=== PATIENT | male | born 1975 | race Two or more races ===

== ENCOUNTER 2021-07-08 06:31 | Emergency (ER) | payer MEDICAID, SELFPAY ==
--- NOTE | ~2021-07-08 | XR_ITS ---
EXAMINATION: XR CHEST CLINICAL INFORMATION: Chest pain. COMPARISON: None TECHNIQUE: Frontal view of the chest was obtained. FINDINGS: No significant abnormality is noted involving the heart, lungs, mediastinum, bony thorax or soft tissues. XR/XR chest 1V IMPRESSION: Unremarkable chest examination.
--- NOTE | 2021-07-08 06:43 | ED_ITS ---
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 Mode of arrival: ambulatory Limitations: no limitations History of Present Illness MD complaint: chest pain Onset (ago): month(s) Timing of current episode: episodic Prior episodes: Yes Onset: during rest Pain location: left chest Pain radiation: none Severity: mild Quality: sharp Relieving factors: nothing Exacerbating factors: nothing Context: other (states he has been anxious) Treatment prior to arrival: none Related Data Allergies Allergy/AdvReac Type Severity Reaction Status Date / Time pineapple [PINEAPPLE] Allergy Severe RASH Unverified 06/28/20 18:58 hydrochlorothiazide [HCTZ] Allergy Unknown DIFFICULTY Unverified 06/28/20 18:58 SWALLOWING, VOICE CHANGE. lisinopril [LISINOPRIL] Allergy Unknown VOICE Unverified 06/28/20 18:58 CHANGE, DIFFICULTY SWALLOWING Review of Systems Review of Systems: Constitutional : No Weight loss, No Fever, No Chills ENT/Mouth : No sore throat, No Rhinorrhea Eyes: No Eye Pain, No Swelling Cardiovascular : pos Chest Pain, no SOB, no Dyspnea on Exertion, No Orthopnea, No Edema, No Palpitations Respiratory : No Cough, No Sputum Gastrointestinal : no Nausea, No Vomiting, No Diarrhea, No abdominal Pain, No Hematochezia, No Melena Genitourinary : No Dysuria, No Urinary Frequency Musculoskeletal : No joint pain, No Myalgias, No Joint Swelling Skin : No Skin Lesions, No rash Neuro : No Weakness, No Numbness, No Dizziness, No Headache Psych : No Anxiety/Panic, No Depression Heme/Lymph: No Bruising, No Lymphadenopathy Endocrine : No Polyuria, No Polydipsia All other systems reviewed and are negative PMF Past Medical History Medical History Anxiety Glaucoma High cholesterol Hypertension Social History Social History Alcohol intake: never Patient Tobacco Use Status: Never used Tobacco Use of substances other than those prescribed or required for medical reasons: No Advance Directives: No Physical Exam Vital Signs: Vital Signs: Last Vital Signs Temp 98.7 F 07/08/21 06:46 Pulse 85 07/08/21 07:15 Resp 20 07/08/21 07:15 BP 138/95 H 07/08/21 07:15 Pulse Ox 99 07/08/21 07:15 Body Mass Index 37.3 Appearance: Alert. Oriented X3. No acute distress. Eyes: Pupils equal, round and reactive to light. ENT: Pharynx normal. Neck: Normal inspection. Neck supple. CVS: Normal heart rate and rhythm. Pulses normal. Respiratory: No respiratory distress. Breath sounds normal. Abdomen: Soft and nontender. Skin: Skin warm and dry. Normal skin color. Normal skin turgor. Extremities: No lower extremity edema. No calf ttp Neuro: Oriented X 3. No motor deficit. No sensory deficit. Course Course Course Narrative: negative trop, no ischemic EKG - very atypical for ACS MDM - Chest Pain MDM Narrative Medical decision making narrative: 45 yo male with HTN here with months of chest pain - not toxic, no associated symptoms starts with stress - seems unusual for ACS, PERC negative, distal pulses intact and given duration doubt dissection will obtain basic labs, EKG, troponin x 1, refer to PCP for stress test Lab Data Result diagrams: 07/08/21 07:10 07/08/21 07:10 Labs: Lab Results 07/08/21 07/08/21 07/08/21 Range/Units 07:10 07:10 07:10 WBC 7.5 (4.8-10.8) X10*3/uL RBC 5.44 (4.60-5.80) X10*6/uL Hgb 16.3 (14.0-18.0) g/dl Hct 46.4 (42-52) % MCV 85.3 (80-98) fL MCH 30.0 (27.0-33.0) pg MCHC 35.1 (31.0-36.0) g/dl RDW 11.9 (11.0-16.0) % Plt Count 240 (160-400) X10*3/uL MPV 9.0 L (9.4-12.4) fL Immature Gran % (Auto) 0.3 (0.0-0.4) % Neut % (Auto) 37.4 L (45-73) % Lymph % (Auto) 48.3 H (20-40) % Hubbard % (Auto) 10.1 (2-11) % Eos % (Auto) 3.2 (0-4) % Baso % (Auto) 0.7 (0-2) % Lymph # (Auto) 3.6 (1.2-4.9) X10*3/uL Hubbard # (Auto) 0.8 (0.1-1.2) X10*3/uL Eos # (Auto) 0.2 (0.0-0.4) X10*3/uL Baso # (Auto) 0.1 (0.0-0.2) X10*3/uL Abs Immat Gran (auto) 0.02 (0.00-0.03) X10*3/uL Absolute Neuts (auto) 2.8 (2.0-8.3) X10*3/uL Absolute Nucleated RBC 0.000 (0.0-0.012) X10*3/uL Nucleated RBC % (auto) 0.0 (0.0-0.2) /100WBC Sodium 140 (135-145) mmol/L Potassium 3.6 (3.3-5.1) mmol/L Chloride 106 (96-108) mmol/L Carbon Dioxide 26 (22-29) mmol/L Anion Gap 12 (12-20) BUN 10 (9-16) mg/dL Creatinine 1.11 (0.5-1.4) mg/dL Estim Creat Clear Calc 110.4 Estimated GFR > 60 Random Glucose 90 (60-115) mg/dL Calcium 9.2 (8.4-10.2) mg/dL Magnesium 2.1 (1.6-2.6) mg/dL Total Bilirubin 0.6 (0.0-1.0) mg/dL Direct Bilirubin 0.2 (0.0-0.5) mg/dL AST 29 (5-37) U/L ALT 68 H (0-40) U/L Alkaline Phosphatase 101 (39-117) U/L Troponin I High Sens < 3.5 (<3.5-35.0) ng/L Total Protein 7.4 (6.5-8.0) g/dL Albumin 4.6 (3.5-5.0) g/dL Lipase 68 (8-78) U/L COVID-19 ([facility]) (Negative) COVID-19 Clin Com 07/08/21 Range/Units 07:10 WBC (4.8-10.8) X10*3/uL RBC (4.60-5.80) X10*6/uL Hgb (14.0-18.0) g/dl Hct (42-52) % MCV (80-98) fL MCH (27.0-33.0) pg MCHC (31.0-36.0) g/dl RDW (11.0-16.0) % Plt Count (160-400) X10*3/uL MPV (9.4-12.4) fL Immature Gran % (Auto) (0.0-0.4) % Neut % (Auto) (45-73) % Lymph % (Auto) (20-40) % Hubbard % (Auto) (2-11) % Eos % (Auto) (0-4) % Baso % (Auto) (0-2) % Lymph # (Auto) (1.2-4.9) X10*3/uL Hubbard # (Auto) (0.1-1.2) X10*3/uL Eos # (Auto) (0.0-0.4) X10*3/uL Baso # (Auto) (0.0-0.2) X10*3/uL Abs Immat Gran (auto) (0.00-0.03) X10*3/uL Absolute Neuts (auto) (2.0-8.3) X10*3/uL Absolute Nucleated RBC (0.0-0.012) X10*3/uL Nucleated RBC % (auto) (0.0-0.2) /100WBC Sodium (135-145) mmol/L Potassium (3.3-5.1) mmol/L Chloride (96-108) mmol/L Carbon Dioxide (22-29) mmol/L Anion Gap (12-20) BUN (9-16) mg/dL Creatinine (0.5-1.4) mg/dL Estim Creat Clear Calc Estimated GFR Random Glucose (60-115) mg/dL Calcium (8.4-10.2) mg/dL Magnesium (1.6-2.6) mg/dL Total Bilirubin (0.0-1.0) mg/dL Direct Bilirubin (0.0-0.5) mg/dL AST (5-37) U/L ALT (0-40) U/L Alkaline Phosphatase (39-117) U/L Troponin I High Sens (<3.5-35.0) ng/L Total Protein (6.5-8.0) g/dL Albumin (3.5-5.0) g/dL Lipase (8-78) U/L COVID-19 ([facility]) Negative (Negative) COVID-19 Clin Com See Note ECG Data ECG #1: Attestation: I personally reviewed and interpreted this ECG as follows: ECG interpretation date: 07/08/21 ECG interpretation time: 06:44 Prior ECG tracings: not available for review Interpretation: Ventricular rate 83 OR interval normal QRS normal QT/QTC normal, normal sinus rhythm. No ST elevations, no T-wave inversions. No acute ischemia. No previous to compare Discharge Plan Discharge Clinical Impression: Atypical chest pain Patient Disposition: Home, Self-Care Instructions: Chest Pain (ED) Additional Instructions: return to ED for any worsening symptoms or concerns Referrals: Physician,Unknown [Primary Care Provider] - 2 days (outpatient stress test) Stand Alone Forms: Work/School Release Print Language: Citizen Of [place]
[2021-07-08 06:46] VITALS: BP 142/99; PULSE 95; RESP 20; TEMP 37.1; O2SAT 99; BMI 37.3
--- NOTE | 2021-07-08 06:54 | PC.NURSE ---
EKG done by Joaquin MORALES in triage @ 0640, handed to provider for review
--- NOTE | 2021-07-08 06:57 | ECG_ITS ---
Test Reason : CHEST PAIN Blood Pressure : / mmHG Vent. Rate : 083 BPM Atrial Rate : 083 BPM P-R Int : 152 ms QRS Dur : 100 ms QT Int : 360 ms P-R-T Axes : 038 -18 034 degrees QTc Int : 423 ms Normal sinus rhythm Normal ECG No previous ECGs available Referred By: Jamee Valencia Electronically Signed By:CHARISSE VERMA
[2021-07-08 07:15] VITALS: BP 138/95; PULSE 85; RESP 20; O2SAT 99
[2021-07-08 07:15] LABS: MANUAL DIFF FLAG NO
[2021-07-08 07:16] LABS: Basophils Absolute Auto 0.1 X10*3/uL (0.0-0.2); Basophils Percent Auto 0.7 % (0-2); Eosinophils Absolute Auto 0.2 X10*3/uL (0.0-0.4); Eosinophils Percent Auto 3.2 % (0-4); Hematocrit 46.4 % (42-52); Hemoglobin 16.3 g/dl (14.0-18.0); Imm Gran Abs Auto 0.02 X10*3/uL (0.00-0.03); Imm Gran Pct Auto 0.3 % (0.0-0.4); Lymphocytes Absolute Auto 3.6 X10*3/uL (1.2-4.9); Lymphocytes Percent Auto 48.3 % (20-40); Mean Corpuscular HGB Conc 35.1 g/dl (31.0-36.0); Mean Corpuscular Volume 85.3 fL (80-98); Monocytes Absolute Auto 0.8 X10*3/uL (0.1-1.2); Monocytes Percent Auto 10.1 % (2-11); Neutrophils Absolute Auto 2.8 X10*3/uL (2.0-8.3); Neutrophils Percent Auto 37.4 % (45-73); Platelet Count 240 X10*3/uL (160-400); Red Blood Count 5.44 X10*6/uL (4.60-5.80); Red Cell Distribution Width 11.9 % (11.0-16.0); White Blood Count 7.5 X10*3/uL (4.8-10.8)
--- NOTE | 2021-07-08 07:18 | PC.NURSE ---
pt alert and oriented x4, b/p 138/95, pt states he has been having on and off chest pain for a while now. this morning he decided to come to ed due to concerns that chest pain may be serious. pt is on medication for HTN and takes his meds consistently as prescribed. He states he did not take his b/p med this morning because he usually take it at 0800. Pt NS on monitor.
[2021-07-08 07:34] LABS: COVID-19 Test Negative (Negative)
[2021-07-08 07:41] LABS: Alanine Aminotransferase 68 U/L (0-40); Albumin Level 4.6 g/dL (3.5-5.0); Alkaline Phosphatase 101 U/L (39-117); Anion Gap 12 (12-20); Aspartate Amino Transferase 29 U/L (5-37); Bilirubin Direct 0.2 mg/dL (0.0-0.5); Bilirubin Total 0.6 mg/dL (0.0-1.0); Blood Urea Nitrogen 10 mg/dL (9-16); Calcium 9.2 mg/dL (8.4-10.2); Carbon Dioxide 26 mmol/L (22-29); Chloride 106 mmol/L (96-108); Creatinine Clr Calc Pharmacy 110.4; Estimated Glomerular Filt Rate > 60; Glucose Random 90 mg/dL (60-115); Lipase 68 U/L (8-78); Magnesium 2.1 mg/dL (1.6-2.6); Potassium 3.6 mmol/L (3.3-5.1); Sodium 140 mmol/L (135-145); Total Protein 7.4 g/dL (6.5-8.0)
[2021-07-08 07:44] LABS: Troponin-I High Sensitivity < 3.5 ng/L (<3.5-35.0)
--- NOTE | 2021-07-08 08:08 | PC.NURSE ---
pt medically cleared for discharge. vss, no c/o reported.
[2021-07-08 08:09] VITALS: BP 134/88; PULSE 79; RESP 18; O2SAT 97
== END 2021-07-08 08:16 | disposition home or self-care (01) ==
PROVIDERS: Emergency Provider Emergency Medicine
DX: R07.89 Other chest pain (principal); Z79.899 Other long term (current) drug therapy; Z20.822 Contact with and (suspected) exposure to COVID-19
CPT/HCPCS: 36415; 71045; 80048; 80076; 83690; 83735; 84484; 85025; 87635; 93005; 99283; 99284

== ENCOUNTER 2022-10-17 09:26 | Outpatient (REF) | payer MEDICAID, SELFPAY ==
--- NOTE | ~2022-10-17 | XR_ITS ---
EXAMINATION: XR ABDOMEN KUB CLINICAL INDICATION: Right hydronephrosis. Stone in the distal ureter. COMPARISON: None TECHNIQUE: AP view of the abdomen. FINDINGS: No suspicious calcification seen overlying the expected position of either kidney or ureter. Normal bowel gas pattern. Gas and stool throughout the colon with moderate diffuse colonic stool burden. No acute osseous abnormality. XR/XR KUB IMPRESSION: No suspicious calcifications to suggest renal or ureteral calculi. Moderate colonic stool burden.
--- NOTE | ~2022-10-17 | US_ITS ---
EXAMINATION: US ABDOMEN LIMITED CLINICAL INFORMATION: Elevated LFTs. COMPARISON: None TECHNIQUE: Real-time imaging of the right upper quadrant abdominal viscera. FINDINGS: PANCREAS: Most of the pancreas is obscured by gas except for the body which appears unremarkable. LIVER: The liver is normal size with slightly lobulated contour. There is diffuse increased parenchymal echogenicity. Is anechoic cyst in the right hepatic lobe measuring 0.7 x 0.7 x 0.8 cm. There is no intrahepatic biliary duct dilatation seen. GALLBLADDER: Normal. The gallbladder is physiologically distended without evidence of stones, sludge, polyps, wall thickening or pericholecystic fluid. COMMON BILE DUCT: Common bile duct is not seen.. RIGHT KIDNEY: There is significant hydronephrosis with probable echogenic stone in the distal ureter.. The kidney measures 15.2 cm in maximum dimension. FREE FLUID: None. US/US abdomen limited IMPRESSION: Severe right hydronephrosis with possible echogenic stone in the lower pole right kidney. Increased echogenicity with lobulated liver suspicious for early cirrhosis. There is anechoic cyst right hepatic lobe. Results regarding hydronephrosis were immediately conveyed to referring physician nurse Shelton Origins the of the report was discussed with telephone. A KUB was obtained obtained today. A CT of abdomen and pelvis will be obtained after pre authorization.
== END 2022-10-17 09:27 | disposition home or self-care (01) ==
LOC: HO.US 09:26
PROVIDERS: PCP Family Medicine; Visit Provider Family Medicine
DX: N13.30 Unspecified hydronephrosis (principal); R74.01 Elevation of levels of liver transaminase levels
CPT/HCPCS: 74018; 76705

== ENCOUNTER 2022-11-03 08:35 | Outpatient (REF) | payer MEDICAID, SELFPAY ==
--- NOTE | ~2022-11-03 | CT_ITS ---
EXAMINATION: CT ABDOMEN AND PELVIS WITHOUT AND WITH CONTRAST CLINICAL INFORMATION: Hydronephrosis. COMPARISON: None TECHNIQUE: Multidetector volumetric imaging was performed of the abdomen and pelvis before and after the IV administration of 85 mL of Omnipaque 300 intravenous contrast. Sagittal and coronal reformatted images were obtained on the technologist's workstation. This CT examination was performed using dose optimization techniques as appropriate, variously including the following: *Automated exposure control *Adjustment of mA and/or kV according to patient size (this includes techniques or standardized protocols for targeted exams where dose is matched to indication/reason for exam; i.e. extremities or head) *Use of iterative reconstruction technique DLP: 1492 mGy-cm FINDINGS: LUNG BASES: Minimal atelectatic changes are seen in both lung bases.. Heart size is normal. LIVER, GALLBLADDER, AND BILIARY TREE: The liver is normal in size, shape, and attenuation. No focal hepatic lesion or biliary ductal dilatation is present. The gallbladder is unremarkable with no evidence of radiopaque gallstones, gallbladder wall thickening, or obvious pericholecystic inflammatory changes. PANCREAS: Unremarkable SPLEEN: Unremarkable ADRENAL GLANDS: Unremarkable KIDNEYS AND URETERS: The left kidney is normal size, shape and position. No radiopaque calculi seen. 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 There are 2 right renal veins. The left ureter is well opacified with excreted contrast without any filling defect. The right ureter is normal caliber with no contrast visualized secondary to UPJ obstruction. BLADDER: Unremarkable GASTROINTESTINAL TRACT: Scattered stool, diverticuli and gas is seen throughout the colon without distention. The small bowel loops are normal caliber. Appendix is normal caliber. No inflammatory process, free air or free fluid seen. ABDOMINAL WALL: A small umbilical hernia containing fat is noted. LYMPH NODES: There are no abnormal size lymph nodes seen. VASCULAR: The abdominal aorta is of normal caliber. Origins of celiac, superior mesenteric and inferior mesenteric arteries are widely patent. There are solitary renal arteries bilaterally. PELVIC VISCERA: Unremarkable OSSEOUS STRUCTURES: Unremarkable CT/CT abdomen pelvis wo/w IV con IMPRESSION: 1. Moderate right hydronephrosis secondary to aberrant right renal vein compressing at the UPJ There is no radiopaque urolith or hydroureteronephrosis. 2. The left kidney is unremarkable. 3. Mild constipation. Scattered colonic diverticulosis without diverticulitis. 4. Small right umbilical hernia containing fat. Fleischner guidelines were followed.
== END 2022-11-03 08:36 | disposition home or self-care (01) ==
LOC: HO.CT 08:35
PROVIDERS: PCP Family Medicine; Visit Provider Family Medicine
DX: N13.30 Unspecified hydronephrosis (principal)
CPT/HCPCS: 74178

== ENCOUNTER → 2022-11-27 09:04 | Outpatient (BNVA) | payer MEDICAID, SELFPAY | PROVIDERS: PCP Family Medicine; Visit Provider Nurse Practitioner Family | DX: N13.30 Unspecified hydronephrosis (principal); N13.5 Crossing vessel and stricture of ureter without hydronephrosis | CPT/HCPCS: 99202 ==

== ENCOUNTER → 2023-01-08 09:20 | Outpatient (REF) | payer MEDICAID, SELFPAY ==
--- NOTE | ~2023-01-08 | NM_ITS ---
EXAMINATION: RENAL DYNAMIC IMAGING STUDY WITH LASIX CLINICAL INFORMATION: Unspecified hydronephrosis. COMPARISON: Abdominal ultrasound and KUB done on 10/17/[address] of the abdomen and pelvis done with and without contrast on 11/03/2022. TECHNIQUE: Serial gamma scintillation camera images were obtained over the posterior trunk during the initial transit and subsequent distribution of a bolus intravenous injection of 10.0 mCi Tc-99m DTPA. At 30 minutes later, 40 mg of Lasix was administered intravenously and an additional 30 minutes of images obtained. FINDINGS: Initial rapid sequence images show good perfusion to the kidneys. Left kidney: Sequential static images obtained up to 30 minutes post injection reveal adequate concentration. There is evidence of excretory function by 5 minutes post injection. No evidence of any obstruction is seen. Right kidney: Sequential static images obtained up to 30 minutes post injection reveal progressive increase in radiotracer uptake with Tmax at 30.5 minutes. There is evidence of excretory function by 10 minutes post injection. The right renal pelvicalyceal system appeared dilated. At 30 minutes post injection following administration of Lasix, no significant clearance of radiotracer activity is noted consistent with moderate to high-grade obstruction. The T-1/2 washout times following Lasix administration are: Left: Not applicable since the left renal collecting system was down before 30 minutes post injection images. Right: No meaningful calculation was performed. There is progressive accumulation of radioisotope urinary bladder with persistent retention of radiotracer within the right kidney. The relative function of the two kidneys based on the 2-3 minute images are: Left 59.1% and right 40.9%. NM/NM renal flow w pharm int IMPRESSION: LEFT KIDNEY: Unremarkable scintigraphic appearance with a normal perfusion, concentration and excretion. RIGHT KIDNEY: Normal perfusion and delayed progressive concentration and moderate to high-grade obstruction at the pelviureteric junction.
[2023-01-08 10:18] LABS: Blood Urea Nitrogen 17 mg/dL (9-16); Estimated Glomerular Filt Rate > 60
[2023-01-08] MEDS: Furosemide 40 MG/4 ML VIAL IVPUSH (15:44)
== END ==
LOC: HO.NUCMED 09:20
PROVIDERS: PCP Family Medicine; Visit Provider Nurse Practitioner Family
DX: N13.5 Crossing vessel and stricture of ureter without hydronephrosis (principal); N13.30 Unspecified hydronephrosis
CPT/HCPCS: 36415; 78708; 82565; 84520; A9539; J1940

== ENCOUNTER → 2023-01-22 09:22 | Outpatient (BNVA) | payer MEDICAID, SELFPAY | PROVIDERS: PCP Family Medicine; Visit Provider Nurse Practitioner Family | DX: N13.30 Unspecified hydronephrosis (principal); N13.5 Crossing vessel and stricture of ureter without hydronephrosis | CPT/HCPCS: 99212 ==

== ENCOUNTER 2023-04-27 10:14 | Outpatient (REF) | payer MEDICAID, SELFPAY ==
[2023-04-27 12:37] LABS: Blood Urea Nitrogen 13 mg/dL (9-16); Estimated Glomerular Filt Rate > 60
== END 2023-04-27 10:15 | disposition home or self-care (01) ==
LOC: HO.LAB 10:14
PROVIDERS: PCP Family Medicine; Visit Provider Nurse Practitioner Family
DX: R39.15 Urgency of urination (principal); N13.30 Unspecified hydronephrosis; N13.5 Crossing vessel and stricture of ureter without hydronephrosis
CPT/HCPCS: 36415; 82565; 84520

== ENCOUNTER 2023-05-01 13:45 | Outpatient (AMB) | payer MEDICAID, SELFPAY ==
--- NOTE | 2023-05-01 13:49 | A.OFFVIS_ITS ---
Intake Intake Visit Reasons: 3m/labs Intake Note: Patient is present for follow up hydronephrosis/labs Urology Medications: none Blood Thinner: none [employer] Unified Communications Engineer Required: Yes [employer] Unified Communications Engineer Name: leoncio Accompanied by: Self / Same As Patient Allergies pineapple [PINEAPPLE] Allergy (Severe, Unverified 05/01/23 16:03) RASH hydrochlorothiazide [HCTZ] Allergy (Unknown, Unverified 05/01/23 16:03) DIFFICULTY SWALLOWING, VOICE CHANGE. lisinopril [LISINOPRIL] Allergy (Unknown, Unverified 05/01/23 16:03) VOICE CHANGE, DIFFICULTY SWALLOWING Medication List - Last Reconciled 05/01/23 by MYRANDA DelaneyP- amlodipine 10 mg PO brimonidine 0.2% 1 drp ophthalmic (eye) carvedilol 6.25 mg PO cholecalciferol (vitamin D3) (Vitamin D3) 25 mcg PO citalopram 40 mg PO clonazepam 1 mg PO clonidine HCl 0.1 mg PO losartan 100 mg PO metformin ER ea PO pravastatin 20 mg PO quetiapine 50 mg PO rosuvastatin 40 mg PO DAILY spironolactone 25 mg PO DAILY sumatriptan succinate ea PO zolpidem 10 mg PO HPI HPI Comments History of Present Illness Details Erasmo is a pleasant 47-year-old Croatian-speaking male patient of who was accompanied by his 2-month-old baby. He presents to the office today for follow-up of his hydronephrosis. Of note, patient was previously seen approximately 3 months ago for right-sided hydronephrosis found incidentally on abdominal ultrasound that was performed for elevated LFTs on 10/17/2022. Results of abdominal ultrasound showing severe right hydronephrosis with possible echogenic stone in the lower pole of the right kidney. A stat KUB was then ordered on this same day showing no suspicious calcifications to suggest renal or ureteral calculi. A CT of the abdomen and pelvis was then performed on 11/03/21 these results showed left kidney is within normal limits. 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 At which time a nuclear renal scan was ordered in results showing relative function of the two kidneys based on the 2-3 minute images are: Left 59.1% and right 40.9%. Left kidney unremarkable scintigraphic appearance with a normal perfusion, concentration and excretion. The right kidney normal perfusion and delayed progressive concentration and moderate to high-grade obstruction at the pelviureteric junction. Discussed further workup with cystoscopy, retrograde, and possible right-sided stent placement. Discussed risks and benefits of procedure verses surveillance monitoring. However, patient does not wish to move forward with diagnostic surgical intervention. Patient reports having discussed findings however still reluctant to diagnostic surgical intervention. Discussed again at length risks versus benefits. Discussed surveillance monitoring of BUN and creatinine. Patient is agreeable. In office urinalysis results reviewed with the patient today. When asked patient denies hematuria, flank pain, fever, and or chills. He denies any urological issues or concerns at this time. He reports he is happy with current voiding parameters. BUN: 07/02--10, 01/01--17, 05/03--13 Creatinine: 07/02--1.11, 01/01--1.16, 05/03--1.06 PFSH Medical History Anxiety Glaucoma High cholesterol Hypertension Social History Alcohol intake: never Patient Tobacco Use Status: Never used Tobacco Review of Systems Const Reports no additional complaints Eyes Reports no additional complaints ENT Reports no additional complaints Card Reports no additional complaints Resp Reports no additional complaints GI Reports no additional complaints Reports as per HPI Musc Reports no additional complaints Neuro Reports no additional complaints Psych Reports no additional complaints Endo Reports no additional complaints Elton/Lymph Reports no additional complaints Aller/Immun Reports no additional complaints Physical Exam Const General: cooperative, healthy appearing, comfortable, no acute distress, well developed, alert and awake Nutritional Appearance: overweight Orientation/consciousness: patient oriented x3 Limitations: no limitations HEENT Head: Yes normal to inspection, Yes normocephalic and Yes atraumatic Eyes General: appearance normal, both eyes and all related structures Neck Neck: Yes normal visual inspection and Yes trachea midline Chest Chest palpation & inspection: normal inspection of the chest Resp Effort & Inspection: normal respiratory effort and able to speak in complete sentences Cardio Rhythm: regular rhythm GI Inspection: Yes normal to inspection General: Yes no CVA tenderness Back/Spine/Pelvis Back: no CVA tenderness Skin General skin exam: no rashes or lesions noted Neuro General: patient oriented x3 Extrem General: Yes normal to inspection and Yes full ROM Psych Appearance: grossly normal and well kempt Mental Status: mental status grossly normal Speech and movement: Normal speech and movement present and Clear speech present Affect: normal affect Attitude: cooperative Thought process: Normal thought process present Thought content: Normal thought content present Insight: Fair insight present (Psych) Judgement: Fair judgement present (Psych) Results AMB Urinalysis, Automated UA Leukoctes 0 Derik/uL Last Edit by [employer] on 05/01/23 14:04 UA Nitrite Last Edit by [employer] on 05/01/23 14:04 UA Urobilinogen 0.2 mg/dL Last Edit by [employer] on 05/01/23 14:04 UA Protein 0 mg/dL Last Edit by [employer] on 05/01/23 14:04 UA pH 6.0 Last Edit by [employer] on 05/01/23 14:04 UA Blood 0 Cruz/uL Last Edit by [employer] on 05/01/23 14:04 UA Specific [place] 1.015 Last Edit by [employer] on 05/01/23 14:04 UA Ketone Last Edit by [employer] on 05/01/23 14:04 UA Bilirubin 0 mg/dL Last Edit by [employer] on 05/01/23 14:04 UA Glucose 0 mg/dL Last Edit by [employer] on 05/01/23 14:04 Results Reviewed Results Reviewed: Laboratory Last Values Urine pH (Auto) 6.0 05/01/23 13:52 Specific [place] (Auto) 1.015 05/01/23 13:52 Urine Protein (Auto) 0 mg/dL 05/01/23 13:52 Glucose (UA)(Auto) 0 mg/dL 05/01/23 13:52 Urine Blood (Auto) 0 Cruz/uL 05/01/23 13:52 Urine Bilirubin (Auto) 0 mg/dL 05/01/23 13:52 Urine Urobilinogen (Auto) 0.2 mg/dL 05/01/23 13:52 Leukocyte Esterase (Auto) 0 Derik/uL 05/01/23 13:52 Assessment & Plan Assessment & Plan (1) UPJ (ureteropelvic junction) obstruction: Code(s): N13.5 - Crossing vessel and stricture of ureter without hydronephrosis (2) Hydronephrosis: Code(s): N13.30 - Unspecified hydronephrosis Plan In office urinalysis results reviewed with the patient today; as noted above. Discussed recent BUN and creatinine levels; as noted above Discussed at length potential causes for hydronephrosis as well as effects of untreated hydronephrosis Discussed at length diagnostic cystoscopy, bilateral retrogrades, and right ureteral stent placement Discussed risks and benefits of diagnostic surgical procedure however patient continues to decline at this time. Discussed surveillance monitoring of BUN and creatinine; he is agreeable He otherwise denies any urinary issues or concerns at this time. BUN and creatinine in 6 months Follow-up in 6 months with lab to be completed prior; or sooner with any issues, questions, concerns. Orders: Orders Blood Urea Nitrogen 6 Months R39.15 - Urgency of urination Creatinine 6 Months R39.15 - Urgency of urination AMB Urinalysis Automated 05/01/23 Z13.9 - Encounter for screening, unspecified Patient Instructions: The patient had an opportunity to ask questions regarding the treatment plan. All questions were answered. Physical exam, labs, and imaging were discussed and reviewed in detail. As well as risks, benefits, and discussion of treatment choices. No major barriers to understanding were identified. The patient expressed understanding and agreement with the above treatment plan. The patient was made aware they should contact our office by phone for worsening of their current condition, the appearance of new symptoms, or with any questions or concerns. Compliance is encouraged with any medications and follow up testing that is ordered. It is a privilege to be allowed the opportunity to participate in? your urological care.? Again, if you have any questions or concerns If you have any questions or concerns please do not hesitate to contact me. The office is [phone]. This note is constructed using voice recognition software. While every effort has been made to ensure accuracy jewelry inspector errors may have been included. Yours sincerely, SHEA Delaney Coding Level of Care Code Est Pt Level 3 (98380) Diagnoses UPJ (ureteropelvic junction) obstruction N13.5 Hydronephrosis N13.30
== END 2023-05-01 14:40 | disposition home or self-care (01) ==
PROVIDERS: Visit Provider Nurse Practitioner Family
DX: N13.5 Crossing vessel and stricture of ureter without hydronephrosis (principal); N13.30 Unspecified hydronephrosis
CPT/HCPCS: 99213

== ENCOUNTER → 2023-05-01 13:45 | Outpatient (BNVA) | payer MEDICAID, SELFPAY | PROVIDERS: Visit Provider Nurse Practitioner Family | DX: N13.1 Hydronephrosis with ureteral stricture, not elsewhere classified (principal) | CPT/HCPCS: 99213 ==

== ENCOUNTER 2023-10-26 08:53 | Outpatient (REF) | payer MEDICAID, SELFPAY ==
[2023-10-26 10:43] LABS: Blood Urea Nitrogen 15 mg/dL (9-16); Estimated Glomerular Filt Rate > 60
== END 2023-10-26 08:54 | disposition home or self-care (01) ==
LOC: HO.LAB 08:53
PROVIDERS: PCP Family Medicine; Visit Provider Nurse Practitioner Family
DX: R39.15 Urgency of urination (principal)
CPT/HCPCS: 36415; 82565; 84520